=== PATIENT | female | born 1955 | race African-American/Black ===

== ENCOUNTER 2018-06-08 12:02 | Day surgery (SDC) | payer OTHER ==
[~2018-06-08] VITALS: Ht 167.6 cm; Wt 97.8 kg
[2018-06-08 13:30] VITALS: Ht 167.6 cm; Wt 97.8 kg
[2018-06-08 13:42] VITALS: BP 154/72; PULSE 62; RESP 15
[2018-06-08] MEDS ORDERED: HYDROCODONE (13:45)
[2018-06-08] MEDS ORDERED: ACETAMINOPHEN (13:45)
[2018-06-08] MEDS ORDERED: [UNRECOGNIZED DRUG - OTHER] (13:45)
[2018-06-08] MEDS ORDERED: QUETIAPINE (13:45)
[2018-06-08] MEDS ORDERED: GABAPENTIN (13:45)
--- NOTE | 2018-06-08 14:31 | HPN ---
Date/Time of Note Date/Time of Note DATE: 06/08/18 TIME: 14:31 Interval H&P Admission Note Pt. seen H&P reviewed: No system changes GILLES HUBBARD Jun 08, 2018 14:31
[2018-06-08] MEDS ORDERED: FENTAnyl 50 MCG/ML VIAL ONE (14:40)
[2018-06-08] MEDS ORDERED: MIDAZOLAM 1 MG/ML 2 ML INJ ONE ×3 (14:40→14:41)
[2018-06-08 14:57] VITALS: BP 118/55; PULSE 60; RESP 20
== END 2018-06-08 16:36 | disposition home or self-care (01) ==
LOC: GIL 12:02
PROVIDERS: ATTEND Internal Medicine Gastroenterology
DX: K29.50 Unspecified chronic gastritis without bleeding (principal); K31.9 Disease of stomach and duodenum, unspecified
CPT/HCPCS: 43239; J2250; J3010; 88305; 88312

== ENCOUNTER 2018-07-14 13:13 | Day surgery (SDC) | payer OTHER ==
[~2018-07-14] VITALS: Ht 160 cm; Wt 99.5 kg
[~2018-07-14 13:13] MED LIST: ACETAMINOPHEN; GABAPENTIN; HYDROCODONE; QUETIAPINE; [UNRECOGNIZED DRUG - OTHER]
[2018-07-14 15:00] VITALS: Ht 160 cm; Wt 99.5 kg
[2018-07-14] MEDS ORDERED: FLUTICASONE NASAL (15:06)
[2018-07-14] MEDS ORDERED: QUETIAPINE PO (15:06)
[2018-07-14] MEDS ORDERED: SERTRALINE PO (15:07)
[2018-07-14] MEDS ORDERED: PANTOPRAZOLE PO (15:07)
[2018-07-14] MEDS ORDERED: GABAPENTIN PO (15:07)
[2018-07-14] MEDS ORDERED: HYDR-3609 PO (15:10)
[2018-07-14] MEDS ORDERED: TRIAMTERENE PO (15:10)
[2018-07-14 16:45] VITALS: BP 163/72; PULSE 56; RESP 16
--- NOTE | 2018-07-14 16:45 | PREAC ---
Date/Time of Note Date/Time of Note DATE: 07/14/18 TIME: 16:44 Anesthesia Eval and Record Evaluation Time Pre-Procedure Interview DATE: 07/14/18 TIME: 16:44 Age 63 Sex female NPO: 8 hrs Preoperative diagnosis screening Planned procedure colonoscopy Past Medical History Past Medical History: Includes Cardio: HTN Musculoskeletal: Other (fibromyalgia) Surgery & Anesthesia Issues No known issue Meds Anticoagulation: No Beta Gómez within 24 hr: No Reason Beta Gómez not given: Pt. not on B-Gómez Reported Medications [Triamterene] No Conflict Check, PO DAILY 07/14/18 Hydrocodone/Acetaminophen (Hydrocodone-Acetamin 10-325 mg) 1 Each Tablet, 1 EACH PO DAILY PRN for PAIN AND/OR INFLAMMATION, TAB 07/14/18 [Pantoprazole] No Conflict Check, PO DAILY 07/14/18 [Sertraline] No Conflict Check, PO QAM 07/14/18 [Quetiapine] No Conflict Check, PO QHS 07/14/18 [Fluticasone] No Conflict Check, NASAL DAILY 07/14/18 [Gabapentin Tid] No Conflict Check 06/08/18 Discontinued Reported Medications [Gabapentin] No Conflict Check, PO 07/14/18 [Seroquel Daily] No Conflict Check 06/08/18 [Stomach Meds.] No Conflict Check 06/08/18 [[place] Tid] No Conflict Check 06/08/18 Meds reviewed: Yes Allergies Coded Allergies: No Known Drug Allergy (Verified Allergy, Unknown, 07/14/18) Allergies Reviewed: Yes Labs/Studies Labs Reviewed: Reviewed by anesthesiologist test: N/A Studies: ECG (n/a), CXR (n/a) Pre-procedure Exam Airway: Adequate mouth opening Mallampati: Mallampati I Teeth: Normal Lung: Normal Heart: Normal ASA Physical Status ASA physical status: 2 Emergency: None Planned Anesthetic General/MAC: MAC Planned Pain Management Parenteral pain med Pre-operative Attestations Prior to commencing anesthesia and surgery, the patient was re-evaluated, there was verification of: *The patient's identity *The results of appropriate recent lab work and preoperative vital signs *The above evaluation not changing prior to induction *Anesthetic plan, risk benefits, alternative and complications discussed with patient/family; questions answered; patient/family understands, accepts and wishes to proceed. LISA CHOE MD Jul 14, 2018 16:45
[2018-07-14] MEDS ORDERED: PROPOFOL 20 ML ONE ×2 (16:46→17:26)
[2018-07-14] MEDS ORDERED: FENTAnyl 50 MCG/ML VIAL ONE (16:46)
[2018-07-14] MEDS ORDERED: ONDANSETRON 4 MG INJ IV PRN (17:00)
[2018-07-14 17:55] VITALS: BP 147/67; PULSE 60; RESP 18
--- NOTE | 2018-07-14 20:31 | PAC ---
Date/Time of Note Date/Time of Note DATE: 07/14/18 TIME: 20:30 Post-Anesthesia Notes Post-Anesthesia Note Last documented vital signs Vital Signs Date Temp Pulse Resp B/P (MAP) Pulse Ox O2 O2 Flow FiO2 Time Delivery Rate 07/14/18 97.7 60 18 147/67 99 Room Air 17:55 (93) 07/14/18 97.8 16:45 Activity: WNL Respiratory function: WNL Cardiovascular function: WNL Mental status: Baseline Pain reasonably controlled: Yes Hydration appropriate: Yes Nausea/Vomiting absent: No LISA COHE MD Jul 14, 2018 20:31
== END 2018-07-14 17:49 | disposition home or self-care (01) ==
LOC: GIL 13:13
PROVIDERS: ATTEND Internal Medicine Gastroenterology
DX: Z12.11 Encounter for screening for malignant neoplasm of colon (principal); K64.8 Other hemorrhoids; I10 Essential (primary) hypertension
CPT/HCPCS: 45378; J3010